=== PATIENT | male | born 1960 | race Caucasian/White ===

== ENCOUNTER 2021-04-30 06:08 | Day surgery (SDC) | payer OTHER ==
[~2021-04-30] VITALS: Ht 177.8 cm; Wt 114.4 kg
[2021-04-30] MEDS ORDERED: OXYC5TAB98 PO (06:52)
[2021-04-30] MEDS ORDERED: ALPR0.25 PO (06:52)
[2021-04-30] MEDS ORDERED: APIX5TAB PO (06:52)
[2021-04-30] MEDS ORDERED: SERT25TA PO (06:52)
[2021-04-30] MEDS ORDERED: ROSU5TAB PO (06:52)
[2021-04-30] MEDS ORDERED: GABA300C PO (06:52)
[2021-04-30] MEDS ORDERED: CLOP75TA52 PO (06:52)
[2021-04-30] MEDS ORDERED: OMEP-110 PO (06:52)
[2021-04-30] MEDS ORDERED: AMLO-150 PO (06:52)
[2021-04-30] MEDS ORDERED: ONDA4TAB7 PO (06:52)
[2021-04-30] MEDS ORDERED: PROC5TAB40 PO (06:52)
[2021-04-30 06:53] VITALS: BP 133/83
[2021-04-30] MEDS ORDERED: SODIUM CHLORIDE 0.9% 1,000 ML IV SCH (07:00)
[2021-04-30 07:40] LABS: INTERNATIONAL NORMALIZED RATIO 1.01 (0.93-1.1); PROTHROMBIN TIME 10.8 Seconds (9.6-11.5)
[2021-04-30] MEDS ORDERED: LIDOCAINE 1%, 10ML ONE (07:51)
[2021-04-30 08:31] LABS: CREATININE 0.81 mg/dL (0.7-1.3)
[2021-04-30] MEDS ORDERED: MIDAZOLAM 1 MG/ML, 5ML ONE ×2 (08:47)
[2021-04-30] MEDS ORDERED: FENTANYL PF 100 MCG/2ML ONE (08:47)
[2021-04-30] MEDS ORDERED: NALOXONE 1 MG/ML, 2ML ONE (08:47)
[2021-04-30] MEDS ORDERED: FLUMAZENIL 0.1 MG/1 ML, 5ML ONE (08:47)
[2021-04-30] MEDS ORDERED: OMNIPAQUE 350 MG/ML, 100ML BOTTLE ONE (09:44)
[2021-04-30] MEDS ORDERED: OXYcodone IR 5MG TABLET PO ONE (10:00)
[2021-04-30] MEDS ORDERED: OXYcodone IR 5MG TABLET ONE (10:02)
== END 2021-04-30 11:45 | disposition home or self-care (01) ==
LOC: OUT 06:08
PROVIDERS: ATTEND Internal Medicine Hematology & Oncology
DX: C78.7 Secondary malignant neoplasm of liver and intrahepatic bile duct (principal); C34.12 Malignant neoplasm of upper lobe, left bronchus or lung; I10 Essential (primary) hypertension; E11.9 Type 2 diabetes mellitus without complications; J45.909 Unspecified asthma, uncomplicated; M19.90 Unspecified osteoarthritis, unspecified site; E78.00 Pure hypercholesterolemia, unspecified; I25.2 Old myocardial infarction; K21.9 Gastro-esophageal reflux disease without esophagitis; G47.30 Sleep apnea, unspecified; Z88.8 Allergy status to other drugs, medicaments and biological substances; Z79.899 Other long term (current) drug therapy; Z98.890 Other specified postprocedural states; Z79.01 Long term (current) use of anticoagulants; Z87.891 Personal history of nicotine dependence
CPT/HCPCS: 36415; 47000; 74160; 77012; 82565; 85610; 88307; 88341; 88342; 99156; 99157; J2250; J3010; Q9967; J2310

== ENCOUNTER → 2021-06-27 | Outpatient (CLI) | payer OTHER ==
[~2021-06-27] MED LIST: ALPR0.25 PO; AMLO-150 PO; APIX5TAB PO; CLOP75TA52 PO; GABA300C PO; OMEP-110 PO; ONDA4TAB7 PO; OXYC5TAB98 PO; PROC5TAB40 PO; ROSU5TAB PO; SERT25TA PO
== END | disposition home or self-care (01) ==
LOC: ROC 09:06
PROVIDERS: ATTEND Radiology Radiation Oncology
DX: C79.31 Secondary malignant neoplasm of brain (principal); C34.12 Malignant neoplasm of upper lobe, left bronchus or lung
CPT/HCPCS: 99214; G0463